=== PATIENT | female | born 1935 | race Caucasian/White ===

== ENCOUNTER 2017-08-31 20:35 | Observation (INO) ==
[2017-08-31] MEDS ORDERED: Ondansetron 4 MG/2 ML VIAL IVP ONE ×2 (20:40→22:59)
[2017-08-31] MEDS ORDERED: 0.9 % Sodium Chloride 1,000 ML IVC ONE (20:40)
[2017-08-31 21:06] LABS: Basophils % 0.4 %; Eosinophils # 0.1 K/mcL (0.0-0.6); Eosinophils % 0.8 %; Hematocrit 33.2 % (35.3-44.9); Hemoglobin 10.4 g/dL (11.5-15.4); Immature Granulocytes % 0.3 % (0-4); Lymphocytes # 1.5 K/mcL (0.6-4.6); Lymphocytes % 14.7 %; Mean Corpuscular HGB Conc 31.3 g/dL (31.6-35.5); Mean Corpuscular Hemoglobin 25.9 pg (28.0-33.3); Mean Corpuscular Volume 82.6 fL (83.0-100.0); Mean Platelet Volume 10.5 fL (9.4-12.4); Monocytes # 0.5 K/mcL (0.0-1.3); Monocytes % 4.3 %; Neutrophils # 8.4 K/mcL (1.6-8.9); Platelet Count 273 K/mcL (140-400); Red Blood Count 4.02 M/mcL (3.82-4.97); Red Cell Distribution Width 14.5 % (11.5-14.5); Segmented Neutrophils % 79.5 %
--- NOTE | 2017-08-31 21:09 | Emergency Department Note ---
Disposition Clinical Impression: Not feeling great, Chest pressure Nausea and vomiting Qualifiers: Vomiting type: unspecified Vomiting Intractability: non-intractable Qualified Code(s): R11.2 - Nausea with vomiting, unspecified Disposition: Admitted As Inpatient Condition: Fair Time of Disposition: 23:33 General Adult HPI - General Chief complaint: ED Nausea/Vomiting/Diarrhea Stated complaint: chest pressure, n/v tenderness left side of abd Time Seen by Provider: 08/31/17 20:40 Source: patient, EMS Mode of arrival: EMS Limitations: no limitations Nursing Notes Reviewed: Yes Vital Signs Reviewed: Yes - History of Present Illness HPI Narrative: Patient is a 82-year-old female that presents the emergency department with nausea and vomiting. She states that this began this afternoon. Patient states that she has never had anything like this before. Patient states that she did take some Pepto today but that seemed to make her symptoms worse. Patient denies any blood in her vomit. Patient denies any chest pain or shortness of breath. Patient states that she recently flew in from [place] and was eating lunch today and then after lunch did not feel well. States that she was vomiting and then dry heaving. Patient denies any fevers but does states that she has been somewhat chilled. Pain Scale: 0 - Related Data Allergies Allergy/AdvReac Type Severity Reaction Status Date / Time codeine Allergy Nausea Verified 08/31/17 20:57 lisinopril Allergy Nausea Verified 08/31/17 20:57 promethazine [From Phenergan] Allergy Anxiety Verified 08/31/17 20:57 All systems ED: reviewed and negative except as stated. Cardiovascular: Denies: chest pain Respiratory: Denies: dyspnea Gastrointestinal: Reports: nausea, vomiting Past Medical History - Past Medical History Medical history: Reports: arthritis, DVT, diabetes, GERD, hypertension, thyroid disease Psychiatric history: Reports: depression - Social History Smoking Status: Never smoker Alcohol use: Reports: none Drug use: Reports: none Physical Exam - General Limitations: no limitations General appearance: alert, in no apparent distress - Head Head exam: atraumatic, normocephalic - Eye Eye exam: Present: normal appearance, EOMI - Neck Neck exam: Present: normal inspection, full ROM, trachea midline - Respiratory Respiratory exam: Present: normal lung sounds bilaterally. Absent: respiratory distress, wheezes - Cardiovascular Cardiovascular exam: Present: regular rate, normal rhythm, normal heart sounds, +S1, +S2 - Abdominal Exam Abdominal exam: Present: soft, Non-Tender, normal bowel sounds - Neurological Exam Neurological exam: Present: alert, oriented X3 - Psychiatric Psychiatric exam: Present: normal affect, normal mood - Skin Skin exam: Present: warm, dry, intact Course - Reevaluation(s) Reevaluation #1: Patient states that she is still not feeling well after receiving Zofran. The patient is from out-of-town and is staying with friends. She states that she has concerns about going home and getting worse. They report that she has been holding her chest while in the room however she still denies having chest pain at this time. Time: 22:49 Vital Signs Temperature 99.0 F 08/31/17 20:47 Pulse Rate 76 08/31/17 20:47 Respiratory Rate 14 08/31/17 20:47 Blood Pressure 162/68 08/31/17 20:47 O2 Sat by Pulse Oximetry 94 08/31/17 20:47 Temperature 98.2 F 09/01/17 02:58 Pulse Rate 82 09/01/17 02:58 Respiratory Rate 18 09/01/17 02:58 Blood Pressure 147/69 09/01/17 02:58 O2 Sat by Pulse Oximetry 98 09/01/17 02:58 Oxygen Delivery Oxygen Delivery Room Air Medical Decision Making - MDM Narrative Medical decision making narrative: The patient presenting with nausea and vomiting and questionable chest pain we will obtain a CBC, CMP, troponin, EKG, lipase, urinalysis and the patient will be given Zofran and IV fluids. Patient did have an elevation in her creatinine we do not have a baseline. The patient also had a mild anemia. Remainder of her laboratory testing was unremarkable. Her EKG showed a sinus rhythm. Her CT scan of the abdomen and pelvis showed diverticulosis without evidence of diverticulitis. After speaking with the patient she did not feel that she was able to go home at this time she is still not feeling well. He has been unclear whether or not she is actually been having chest pain. Patient denies having chest pain but there was reports from EMS that she reported chest pressure and the friends stating that she has been holding her chest. Feel that is appropriate to admit the patient to the hospital for further evaluation and management. I called and spoke with the hospitalist and he is except the patient to their service. The patient be admitted to the hospital this time. - Lab Data Result diagrams: 09/01/17 02:11 09/01/17 02:11 - Radiology Data Radiology results reviewed: Yes I reviewed the patient's radiology results. Abdomen/Pelvis CT 08/31/17 20:41 IMPRESSION: No acute abnormality identified in the abdomen or pelvis. Diverticulosis. D/ / Bishop Klein / Bishop Klein Interpreting Provider: Bishop Klein - EKG Data EKG #1 EKG attestation: Yes I reviewed and interpreted this EKG. EKG results narrative: EKG showed a sinus rhythm at a rate of 77 bpm, KS interval 220, QRS duration of 102, QTc of 419. There is no evidence of STEMI at this time. Previous EKG for comparison. Attestation Statement - Attestation Attestation: I examined this patient and my medical decision-making was reviewed with the Resident Physician. I agree with the documented findings, disposition and treatment plan as described except to the extent set forth below. Nonspecific chest pain. We will admit for cardiac consultation as patient does not have local follow-up. Patient has some risk factors. I have low suspicion for ACS however given the atypical nature of symptoms with poor follow-up we will proceed with admission for turning of cardiac biomarkers.
[2017-08-31 21:29] LABS: Albumin 3.9 g/dL (3.5-5.7); Albumin/Globulin Ratio 1.6 (1.1-2.2); Bilirubin,Total 0.4 mg/dL (0.3-1.0); Calcium 9.6 mg/dL (8.6-10.3); Globulin 2.5 g/dL (2.4-3.5); Potassium 4.2 mEq/L (3.5-5.1); Total Protein 6.4 g/dL (6.4-8.9)
[2017-08-31 21:45] LABS: Bilirubin,Urine Negative (Negative); Blood,Urine Negative (Negative); Clarity,Urine Clear (Clear); Color,Urine Yellow (Yellow); Glucose,Urine (UA) 100 mg/dL (Normal); Ketones,Urine Negative (Negative); Leukocyte Esterase,Urine Negative (Negative); Nitrite,Urine Negative (Negative); PH,Urine 6.5 pH Units (5.0-8.0); Protein,Urine Negative (Neg-Trace); Specific Gravity,Urine 1.019 (1.010-1.025); Urobilinogen,Urine Normal (Normal)
[2017-09-01] MEDS ORDERED: Acetaminophen 325 MG TABLET PO PRN (01:40)
[2017-09-01] MEDS ORDERED: Naloxone 0.4 MG/ML INJ IVP PRN (01:40)
[2017-09-01] MEDS ORDERED: D5% in Water 1,000 ML IVC PRN (01:42)
[2017-09-01] MEDS ORDERED: Dextrose Gel 15 GM/37.5 ML TUBE PO PRN ×2 (01:42)
[2017-09-01] MEDS ORDERED: *HR* Dextrose 50 % in Water (Syg) 50 ML SYRINGE IVP PRN (01:42)
--- NOTE | 2017-09-01 01:44 | Internal Med History&Physical ---
Date of Encounter: 09/01/17 Time of Encounter: 01:43 Internal Medicine - H&P: HPI Chief complaint: nausea, dry heaving Admitted From: Emergency Dept Plans for Post Hospital Care: Home History of present illness: Ms. Levy is a 82 year old female with h/o- HTN and DM, presents with c/o- nausea and dry heaves. Patient is a visitor from [place], and flew in 3 days ago. SHe reports sudden onset of constant nausea and dry heaving and feeling sick since yesterday morning. She has no actual vomiting; no abdominal pain, diarrhea , fever/chills. No chest pain, shortness of breath, palpitations. She also reports polyuria for the last 3-4 months. She had no outside food prior to this complaint. No similar previous episodes. SHe is on Metformin for DM, checks her blood sugars infrequently; Past Med Surg Social Fam HX - Past Medical History Source: patient Medical history: arthritis, DVT, diabetes, GERD, hypertension, thyroid disease Psychiatric history: depression - Past Surgical History Surgical History: herniorrhaphy, orthopedic, other (left leg surgery) - Social History Smoking Status: Never smoker Smokeless Tobacco Status: No Alcohol use: none Drug use: none Occupational status: retired Current living situation: Home, With Family Activity Level: Independent ambulation Recent Out of Country Travel Within the Last 8 Weeks: No Exposure or Possible Exposure to Illness During Travel: No - Family History Father Hx Family Endocrine Disorder: Yes (DM) Internal Medicine - H&P: Meds 3 Allergy/AdvReac Type Severity Reaction Status Date / Time codeine Allergy Nausea Verified 08/31/17 20:57 lisinopril Allergy Nausea Verified 08/31/17 20:57 promethazine [From Phenergan] Allergy Anxiety Verified 08/31/17 20:57 All Systems PM: A 10-system review of systems was performed and is negative for pertinent findings except as documented above in the HPI. - Constitutional Constitutional: no chills, no fever(s), no night sweats - EENT Eyes: no change in vision, no discharge, no pain, no photophobia Ears: no ear discharge, no ear pain, no tinnitus Nose, mouth and throat: no dysphagia, no nasal discharge, no neck pain, no sore throat - Cardiovascular Cardiovascular ROS IM: no chest pain, no diaphoresis, no dyspnea, no lightheadedness, no palpitations, no syncope - Respiratory Respiratory: no cough, no dyspnea, no wheezing, no excessive phlegm production - Gastrointestinal Gastrointestinal: nausea, no abdominal pain, no diarrhea, no hematemesis, no hematochezia, no melena, no vomiting - Genitourinary Genitourinary: no change in urinary stream, no dysuria, no flank pain, no hematuria - Musculoskeletal Musculoskeletal ROS IM: no numbness, no tingling - Integumentary Integumentary IM: no rash, no unusual bruising - Neurological Neurological ROS: no confusion, no convulsions, no focal weakness, no numbness, no tingling, no tremor(s) - Hematologic/Lymphatic Hematologic/Lymphatic: no easy bruising - Constitutional Vitals: Temp Pulse Resp BP Pulse Ox 98.4 F 72 18 154/78 93 09/01/17 00:05 09/01/17 00:05 09/01/17 00:05 09/01/17 00:05 09/01/17 00:05 General appearance: Present: A&O X 3 (hard of hearing), obese, answers questions appropriately - Respiratory Respiratory exam: Present: CTAB. Absent: accessory muscle use, rales, rhonchi, wheezes - Cardiovascular Cardiovascular exam: Present: RRR, +S1, +S2. Absent: diastolic murmur, gallop, rubs, systolic murmur - GI/Abdominal GI/Abdominal exam: Present: normal bowel sounds, soft (obese), no peritoneal signs. Absent: distended, tenderness - Extremities Exam Extremities exam: Present: full ROM, warm, radial pulses palpable and symmetrical. Absent: calf tenderness, cyanotic, pedal edema - Neurological Exam Neurological exam: Present: CN II-XII intact, oriented X3, no focal deficits. Absent: pronater drift, facial droop, speech deficit - Skin Skin exam: Present: dry, intact Internal Med - H&P Results - Labs CBC & Chem 7: 09/01/17 02:11 09/01/17 02:11 - EKG Data -: EKG Interpreted by Myself EKG shows normal: sinus rhythm Rate: normal - Assessment and plan (1) Nausea and vomiting Current Visit: Yes Status: Acute Assessment and plan: nausea and dry heaving, likely food poisoning vs gastroparesis vs gastritis; supportive care with PRN antiemetics and pain control. IV hydration. CT abdomen/ pelvis showed no acute abnormality. Clear liquid diet as tolerated. Qualifiers: Vomiting type: unspecified Vomiting Intractability: non-intractable Qualified Code(s): R11.2 - Nausea with vomiting, unspecified (2) NADEEN (acute kidney injury) Current Visit: Yes Status: Acute Assessment and plan: Unknown of patient has CKD; creatinine is 1.71; continue IV hydration and monitor serum creatinine; avoid nephrotoxins; (3) Essential hypertension Current Visit: Yes Status: Chronic Assessment and plan: BP acceptable; home meds to be resumed when med rec is available; (4) Diabetes mellitus Current Visit: Yes Status: Chronic Assessment and plan: blood sugars mildly elevated; Accucheck blood glucose monitoring with sliding scale insulin; diabetic clear liquid diet; check HbA1C; Qualifiers: Diabetes mellitus type: type 2 Diabetes mellitus penitentiary insulin use: without penitentiary use Diabetes mellitus complication status: with unspecified complications Qualified Code(s): E11.8 - Type 2 diabetes mellitus with unspecified complications (5) Hypothyroidism Current Visit: Yes Status: Chronic Assessment and plan: resume home dose of Levothyroxine when med rec is available; Qualifiers: Hypothyroidism type: unspecified Qualified Code(s): E03.9 - Hypothyroidism , unspecified (6) Depression Current Visit: Yes Status: Chronic Qualifiers: Depression Type: unspecified Qualified Code(s): F32.9 - Major depressive disorder, single episode, unspecified - Time Spent With Patient Total time spent is greater than 50% in coordination of care (as documented) at patient's floor/unit and/or counseling patient:
[2017-09-01] MEDS: Ringers Solution, Lactated 1,000 ML IVC SCH ×2 (02:00→17:13)
[2017-09-01 02:34] LABS: Basophils % 0.4 %; Eosinophils % 0.1 %; Hematocrit 33.3 % (35.3-44.9); Hemoglobin 10.4 g/dL (11.5-15.4); Immature Granulocytes % 0.7 % (0-4); Lymphocytes % 11.1 %; Mean Corpuscular HGB Conc 31.2 g/dL (31.6-35.5); Mean Corpuscular Hemoglobin 25.9 pg (28.0-33.3); Mean Corpuscular Volume 82.8 fL (83.0-100.0); Mean Platelet Volume 10.7 fL (9.4-12.4); Monocytes # 0.2 K/mcL (0.0-1.3); Monocytes % 1.7 %; Neutrophils # 7.8 K/mcL (1.6-8.9); Platelet Count 292 K/mcL (140-400); Red Blood Count 4.02 M/mcL (3.82-4.97); Red Cell Distribution Width 14.3 % (11.5-14.5)
[2017-09-01 02:55] LABS: Calcium 9.4 mg/dL (8.6-10.3); Magnesium 1.8 mg/dL (1.6-2.6); Potassium 4.4 mEq/L (3.5-5.1)
[2017-09-01] MEDS: Ondansetron 4 MG/2 ML VIAL IVP PRN ×4 (04:29→23:01)
[2017-09-01] MEDS: Pantoprazole 40 MG VIAL IVP SCH (04:38)
[2017-09-01] MEDS: Insulin LISPRO 300 UNITS/3 ML VIAL SQ SCH ×4 (08:30→21:46)
--- NOTE | 2017-09-01 15:58 | Electrocardiograph Report ---
[place] [id number] Test Date: 2017-08-31 Pat Name: Karla Levy Department: 102 Room: [facility] Gender: F [employer] Officer: Peña : 1935 Requested By: Darnell Vela Order Number: [id number] Reading MD: Diana Harry Measurements Intervals [place]ison Rate: 77 P: 51 MT: 220 QRS: -37 QRSD: 102 T: 73 QT: 387 QTc: 419 Interpretive Statements SINUS RHYTHM WITH FIRST DEGREE AV BLOCK LEFT AXIS DEVIATION [QRS AXIS < -30] LEFT VENTRICULAR HYPERTROPHY AND ST-T CHANGE [VOLTAGE CRITERIA PLUS ST/T ABNORMALITY] Electronically Signed On 09-01-2017 15:56:49 EDT by Diana Harry
[2017-09-02 02:27] LABS: Hematocrit 32.8 % (35.3-44.9); Hemoglobin 10.7 g/dL (11.5-15.4); Mean Corpuscular HGB Conc 32.6 g/dL (31.6-35.5); Mean Corpuscular Hemoglobin 26.7 pg (28.0-33.3); Mean Corpuscular Volume 81.8 fL (83.0-100.0); Mean Platelet Volume 10.5 fL (9.4-12.4); Platelet Count 296 K/mcL (140-400); Red Blood Count 4.01 M/mcL (3.82-4.97); Red Cell Distribution Width 14.5 % (11.5-14.5)
[2017-09-02 02:48] LABS: BUN/Creatinine Ratio 15 (6-26); Blood Urea Nitrogen 13 mg/dL (8-23); Calcium 9.4 mg/dL (8.6-10.3); Carbon Dioxide 30 mEq/L (23-29); Chloride 95 mEq/L (98-107); Glucose 155 mg/dL (70-105); Osmolality,Calculated 277 (280-300); Potassium 3.6 mEq/L (3.5-5.1); Sodium 132 mEq/L (136-145); eGFR For African Americans > 60 (> 60); eGFR For Non-African Americans > 60 (> 60)
[2017-09-02] MEDS: Pantoprazole 40 MG VIAL IVP SCH (05:06)
[2017-09-02] MEDS: amLODIPine 5 MG TABLET PO SCH (05:06)
[2017-09-02] MEDS: Insulin LISPRO 300 UNITS/3 ML VIAL SQ SCH ×4 (09:08→22:25)
[2017-09-02] MEDS: Ondansetron ODT 4 MG TAB.RAPDIS SL PRN (10:32)
--- NOTE | 2017-09-02 10:42 | Discharge Summary ---
- NOTES TO OUTPATIENT PROVIDER Notes to Outpatient Provider: Follow up with primary care physician within 7 days. Use Zofran as needed for nausea, hold Lasix for 5 days Date of Encounter: 09/02/17 Time of Encounter: 10:38 - Discharge Diagnosis (1) NADEEN (acute kidney injury) Priority: Primary Status: Acute Assessment and Plan: Acute renal failure due to dehydration (2) Nausea and vomiting Priority: Primary Status: Acute Assessment and Plan: Intractable nausea likely due to viral infection . Qualifiers: Vomiting type: unspecified Vomiting Intractability: non-intractable Qualified Code(s): R11.2 - Nausea with vomiting, unspecified (3) Essential hypertension Priority: Secondary Status: Chronic Assessment and Plan: ; (4) Diabetes mellitus Priority: Secondary Status: Chronic Qualifiers: Diabetes mellitus type: type 2 Diabetes mellitus keno terminal operator insulin use: without keno terminal operator use Diabetes mellitus complication status: with unspecified complications Qualified Code(s): E11.8 - Type 2 diabetes mellitus with unspecified complications (5) Hypothyroidism Priority: Secondary Status: Chronic Qualifiers: Hypothyroidism type: unspecified Qualified Code(s): E03.9 - Hypothyroidism , unspecified (6) Depression Priority: Secondary Status: Chronic Qualifiers: Depression Type: unspecified Qualified Code(s): F32.9 - Major depressive disorder, single episode, unspecified Hospital course: Ms. Levy is a 82 year old female with h/o- HTN and DM not insulin dependent , presented with c/o- nausea and dry heaves. Patient is a visitor from [place], and flew in 3 days ago prior to admission . SHe reported sudden onset of constant nausea and dry heaving and feeling sick . She has no diarrhea, fever/chills. No chest pain, shortness of breath, palpitations. She also reported polyuria for the last 3-4 months. No similar previous episodes. Complained of abdominal discomfort upon admission which has resolved already. Creatinine was 1.7 upon admission and has decreased down to 0.8 after receiving IVF. Lasix and Losartan were held CT abdomen/pelvis showed no acute abnormality, showed only diverticulosis. Nausea has improved with the use of Zofran. - Time Spent with Patient Total time spent providing and/or coordinating discharge services: Greater than 30 minutes (40 min) - Discharge Medications Prescriptions: Ondansetron ODT [Zofran ODT] 4 mg SL Q4HR PRN 5 Days #30 tab.rapdis PRN Reason: Nausea And Vomiting Home Medications: Amlodipine Besylate 10 mg PO DAILY 09/01/17 [History] Atorvastatin Calcium [Lipitor] 80 mg PO HS 09/01/17 [History] Citalopram Hydrobromide [Citalopram HBr] 40 mg PO DAILY 09/01/17 [History] Furosemide [Lasix] 40 mg PO DAILY 09/01/17 [History] Levothyroxine [Synthroid] 75 mcg PO DAILY 09/01/17 [History] Losartan Potassium [Cozaar] 100 mg PO DAILY 09/01/17 [History] Omeprazole [PriLOSEC] 20 mg PO DAILY 09/01/17 [History] metFORMIN [Glucophage] 500 mg PO BID 09/01/17 [History] traZODone [TraZODone] 50 mg PO HS 09/01/17 [History] Ondansetron ODT [Zofran ODT] 4 mg SL Q4HR PRN 5 Days #30 tab.rapdis 09/02/17 [Rx ] Allergies/Adverse Reactions: 3 Allergy/AdvReac Type Severity Reaction Status Date / Time codeine AdvReac Nausea Verified 09/01/17 08:18 lisinopril AdvReac Nausea Verified 09/01/17 08:18 promethazine [From Phenergan] AdvReac Anxiety Verified 09/01/17 08:18 Date of admission: 08/31/17 23:24 Primary care physician: PCP NONE - Constitutional Vitals: Temp Pulse Resp BP Pulse Ox 98.6 F 92 18 174/70 93 09/02/17 06:28 09/02/17 06:28 09/02/17 06:28 09/02/17 06:28 09/02/17 06:28 General appearance: Present: A&O X 3 (hard of hearing), obese, answers questions appropriately - Head Head exam: Present: atraumatic, normocephalic - Eye Eye exam: Present: PERRL, conjuntiva pink, sclera anicteric Pupils: Present: PERRL - Neck Neck exam general surgery: Present: supple, trachea midline. Absent: lymphadenopathy - Respiratory Respiratory exam: Present: CTAB. Absent: accessory muscle use, rales, rhonchi, wheezes - Cardiovascular Cardiovascular exam: Present: RRR, +S1, +S2. Absent: diastolic murmur, gallop, rubs, systolic murmur - GI/Abdominal GI/Abdominal exam: Present: normal bowel sounds, soft, no peritoneal signs. Absent: distended, tenderness - Extremities Exam Extremities exam: Present: warm, radial pulses palpable and symmetrical. Absent : calf tenderness, cyanotic, pedal edema - Neurological Exam Neurological exam: Present: CN II-XII intact, oriented X3, no focal deficits. Absent: pronater drift, facial droop, speech deficit - Skin Skin exam: Present: dry, intact - Patient Status Disposition: Home, Self-Care Condition: Fair Overall status at discharge: patient is progressing back to baseline - Discharge Instructions Follow Up With: NONE,PCP [Primary Care Provider] - Additional Instructions: Follow up with primary care physician within 7 days. Use Zofran as needed for nausea, hold Lasix for 5 days - Diet and Activity Activity: increase activity as tolerated Diet: diabetic diet
[2017-09-02] MEDS: Ondansetron 4 MG/2 ML VIAL IVP PRN ×2 (12:25→18:06)
[2017-09-02] MEDS ORDERED: Melatonin 3 MG TABLET PO PRN (21:56)
[2017-09-03] MEDS: Ondansetron 4 MG/2 ML VIAL IVP PRN ×2 (00:28→06:22)
[2017-09-03] MEDS: Pantoprazole 40 MG VIAL IVP SCH (06:21)
[2017-09-03] MEDS: Ondansetron ODT 4 MG TAB.RAPDIS SL PRN ×2 (08:53→14:39)
[2017-09-03] MEDS: amLODIPine 5 MG TABLET PO SCH (08:53)
[2017-09-03] MEDS: Insulin LISPRO 300 UNITS/3 ML VIAL SQ SCH ×2 (08:53→12:38)
[2017-09-03] MEDS ORDERED: Lactulose Oral Soln 20 GM/30 ML UDC PO ONE (10:08)
--- NOTE | 2017-09-03 10:13 | Internal Med Progress Note ---
Date of Encounter: 09/03/17 Time of Encounter: 10:10 - Assessment and plan (1) NADEEN (acute kidney injury) Current Visit: Yes Status: Acute Assessment and plan: Acute renal failure due to dehydration Resolved with IV fluids (2) Nausea and vomiting Current Visit: Yes Status: Acute Assessment and plan: Intractable nausea likely due to viral infection , possible gastroparesis, possible constipation Start Reglan standing dose, use Zofran as needed Advance diet Give lactulose Consider CT scan with oral contrast if not improving . Qualifiers: Vomiting type: unspecified Vomiting Intractability: non-intractable Qualified Code(s): R11.2 - Nausea with vomiting, unspecified (3) Essential hypertension Current Visit: Yes Status: Chronic Assessment and plan: Continue losartan, amlodipine and hydralazine IV as needed (4) Diabetes mellitus Current Visit: Yes Status: Chronic Assessment and plan: Hold metformin sliding scale insulin; diabetic diet Qualifiers: Diabetes mellitus type: type 2 Diabetes mellitus retirement insulin use: without computer terminal operator use Diabetes mellitus complication status: with unspecified complications Qualified Code(s): E11.8 - Type 2 diabetes mellitus with unspecified complications (5) Hypothyroidism Current Visit: Yes Status: Chronic Assessment and plan: Levothyroxine Qualifiers: Hypothyroidism type: unspecified Qualified Code(s): E03.9 - Hypothyroidism , unspecified (6) Depression Current Visit: Yes Status: Chronic Qualifiers: Depression Type: unspecified Qualified Code(s): F32.9 - Major depressive disorder, single episode, unspecified - Time Spent With Patient Total time spent is greater than 50% in coordination of care (as documented) at patient's floor/unit and/or counseling patient: - Subjective Interval history: Still complaining of constant nausea, denies any abdominal pain, has not had any bowel movements, denies any fevers chills no chest pain or shortness of breath - Constitutional Vitals: Temp Pulse Resp BP Pulse Ox 98.8 F 93 17 174/83 96 09/03/17 07:37 09/03/17 07:37 09/03/17 07:37 09/03/17 07:37 09/03/17 07:37 General appearance: Present: A&O X 3 (hard of hearing), obese, answers questions appropriately - Head Head exam: Present: atraumatic, normocephalic - Eye Eye exam: Present: PERRL, conjuntiva pink, sclera anicteric Pupils: Present: PERRL - Neck Neck exam general surgery: Present: supple, trachea midline. Absent: lymphadenopathy - Respiratory Respiratory exam: Present: CTAB. Absent: accessory muscle use, rales, rhonchi, wheezes - Cardiovascular Cardiovascular exam: Present: RRR, +S1, +S2. Absent: diastolic murmur, gallop, rubs, systolic murmur - GI/Abdominal GI/Abdominal exam: Present: distended, normal bowel sounds, soft, no peritoneal signs. Absent: tenderness - Extremities Exam Extremities exam: Present: warm, radial pulses palpable and symmetrical. Absent : calf tenderness, cyanotic, pedal edema - Neurological Exam Neurological exam: Present: CN II-XII intact, oriented X3, no focal deficits. Absent: pronater drift, facial droop, speech deficit - Skin Skin exam: Present: dry, intact Internal Medicine: Result - Labs CBC & Chem 7: 09/02/17 01:43 09/02/17 01:43 Consult Discharge Plan - Plan Additional Instructions: Follow up with primary care physician within 7 days. Use Zofran as needed for nausea, hold Lasix for 5 days Referrals: NONE,PCP [Primary Care Provider] - Prescriptions: Ondansetron ODT [Zofran ODT] 4 mg SL Q4HR PRN 5 Days #30 tab.rapdis PRN Reason: Nausea And Vomiting
[2017-09-03] MEDS ORDERED: Ringers Solution, Lactated 1,000 ML IVC SCH (10:15)
[2017-09-03] MEDS ORDERED: Metoclopramide 10 MG/10 ML UD.LIQ PO SCH (12:00)
[2017-09-03 15:24] VITALS: BP 103/64
== END 2017-09-03 16:48 | disposition home or self-care (01) ==
LOC: EMEROO 20:35 → 3NENU 20:35 → SUATTDRO 23:24 → 3NENU 23:57
PROVIDERS: ADMIT Internal Medicine; ATTEND Internal Medicine